=== PATIENT | female | born 2000 | race Caucasian/White ===

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

== ENCOUNTER 2019-01-26 17:32 | Emergency (ER) | payer MEDICAID, SELFPAY ==
[2019-01-26 17:43] VITALS: BP 129/79; PULSE 87; RESP 16; TEMP 36.7; O2SAT 98
[2019-01-26] MEDS: Acetaminophen 325 MG TAB 650 MG PO (19:27)
[2019-01-26] MEDS: Ibuprofen 600 MG TAB PO (19:27)
[2019-01-26] MEDS: Lidocaine 5% Patch 1 PATCH TP (19:28)
--- NOTE | 2019-01-26 19:42 | ED.GENADUL_ITS ---
Discharge Plan Disposition Patient Disposition: HOME Discharge Details Chief Complaint: Nk/Back Pain Clinical Impression: Acute lumbar back pain Primary Care Provider: Dmitry Zurita ED Provider: [facility] Home Meds and New Rx's Prescriptions: New lidocaine 5 % adhesive patch,medicated 1 patch TP DAILY Qty: 15 RF: 0 ibuprofen 200 mg capsule 600 mg PO TID PRN PRN (Reason: pain) Qty: 30 RF: 0 acetaminophen [Tylenol] 325 mg capsule 650 mg PO Q6H PRN (Reason: pain) Qty: 30 RF: 0 No Action Control Pill PO DAILY RF: 0 Discharge Instructions Instructions: Low Back Strain (ED) Additional Instructions: Please take ibuprofen 600 mg every 6-8 hours for the next few days. Please take Tylenol 650 mg every 6-8 hours for the next few days. Use lidocaine patch as prescribed. Please contact your primary care physician to arrange follow-up. Return to the ER for any worsening or new concerning symptoms. Referrals: Dmitry Zurita [Primary Care Provider] - Medical Decision Making 18-year-old female here with atraumatic low back pain for the past 3 to 4 days. Exam significant for tenderness mid lumbar paraspinal. No midline tenderness. Neurologically intact with no new neurologic symptoms. No fever. Suspect muscle strain versus spasm versus less likely disc herniation. Plan to treat with ibuprofen, Tylenol and lidocaine patch. Usual customary discharge instructions were provided. I advised close outpatient follow-up should symptoms persist. She understands to return to the ER immediately for any worsening or new concerning symptoms. Patient was placed on the care management follow-up list to assist in arranging timely follow-up with her new PCP. HPI General Mode of arrival: ambulatory . Date/Time Provider Initiated Documentation: 01/26/19 19:01 . Limitations to Documentation: no limitations . Information obtained by: patient . HPI Narrative: 18-year-old female presents with chief complaint of low back pain. Patient notes that for the past 3 to 4 days she has had lower back pain that has persisted. Patient notes she woke up with it one morning. She did not have any trauma. Pain is moderate. Worse with certain positions including twisting her low back. She has no associated numbness, weakness, bowel or bladder dysfunction, fever, rash, or abdominal pain. Patient does note she had a illness recently with sore throat, cough and vomiting - now resolved this past week. Related Data Home Medications Medication Instructions Recorded Confirmed Control Pill PO DAILY 01/26/19 acetaminophen [Tylenol] 650 mg PO Q6H PRN #30 cap 01/26/19 ibuprofen 600 mg PO TID PRN PRN #30 cap 01/26/19 lidocaine 1 patch TP DAILY #15 each 01/26/19 Previous Rx's Medication Instructions Recorded acetaminophen [Tylenol] 650 mg PO Q6H PRN #30 cap 01/26/19 ibuprofen 600 mg PO TID PRN PRN #30 cap 01/26/19 lidocaine 1 patch TP DAILY #15 each 01/26/19 Allergies Allergy/AdvReac Type Severity Reaction Status Date / Time No Known Allergies Allergy Unverified 01/26/19 17:47 General Stated Complaint: Orthopedic RAJWINDER: 4 Review of Systems Review of Systems All systems reviewed & are unremarkable except as noted in HPI and below Exam Const General: cooperative and no acute distress HENMT Head: normocephalic and atraumatic Mouth: moist mucous membranes Eyes Conjunctivae: normal conjunctivae Sclera: normal sclerae Neck Neck: full ROM and nontender Resp Auscultation: clear to auscultation bilaterally, no rales, no rhonchi and no wheezes Cardio Jugular venous pressure: no JVD Rate: regular rate and not tachycardic Rhythm: regular rhythm GI Palpation: soft, not firm, no guarding, no masses, not rigid and nontender Back/Spine/Pelvis Back: No erythema, No warmth and No ecchymosis Thoracic/Lumbar Spine: paraspinal tenderness (left lumbar L3) and No thoracic spinal tenderness Skin General skin exam: no rashes or lesions noted Neuro General: alert, awake, oriented x3, tone normal and other (no saddle anesth - gloved exam though clothing with mother present) Cognition: normal cognition Motor: muscle tone normal throughout and strength 5/5 throughout Sensory Exam: no sensory deficits noted DTR's: Rt Patellar: 3+ and Lt Patellar: 3+ Extrem General: no edema Course Vital Signs Temperature 36.7 C 01/26/19 17:43 Pulse 87 01/26/19 17:43 Respiratory Rate 16 01/26/19 17:43 Blood Pressure 129/79 01/26/19 17:43 Pulse Oximetry 98 01/26/19 17:43 Temperature 36.7 C 01/26/19 17:43 Temperature Source Skin 04/21/19 17:43 Pulse 87 01/26/19 17:43 Respiratory Rate 16 01/26/19 17:43 Respiratory Effort Non-Labored 01/26/19 17:43 Blood Pressure 129/79 01/26/19 17:43 Blood Pressure Position Sitting 01/26/19 17:43 Pulse Oximetry 98 01/26/19 17:43 Oxygen Delivery Method Room Air 01/26/19 17:43 Oxygen Flow Rate 0 01/26/19 17:43 Pain Level 8 01/26/19 19:27
[2019-01-26 19:50] VITALS: BP 121/69; PULSE 80; RESP 15; TEMP 36.7; O2SAT 98
== END 2019-01-26 19:57 | disposition home or self-care (01) ==
PROVIDERS: Emergency Provider Student in an Organized Health Care Education/Training Program; PCP Family Medicine
DX: M54.5 Low back pain (principal)
CPT/HCPCS: 99283

== ENCOUNTER 2019-09-26 21:08 | Emergency (ER) | payer OTHER, SELFPAY ==
[2019-09-26 21:12] VITALS: BP 131/82; PULSE 84; RESP 17; TEMP 36.9; O2SAT 99
--- NOTE | 2019-09-26 21:15 | W.ED.GENAD ---
Discharge Plan Disposition Patient Disposition: HOME Condition: Good Discharge Details Chief Complaint: Burn Clinical Impression: Burn of finger Primary Care Provider: Dmitry Zurita ED Provider: Marco Deal Home Meds and New Rx's Prescriptions: No Action Control Pill PO DAILY RF: 0 lidocaine 5 % adhesive patch,medicated 1 patch TP DAILY Qty: 15 RF: 0 ibuprofen 200 mg capsule 600 mg PO TID PRN PRN (Reason: pain) Qty: 30 RF: 0 acetaminophen [Tylenol] 325 mg capsule 650 mg PO Q6H PRN (Reason: pain) Qty: 30 RF: 0 Discharge Instructions Instructions: Second Degree Burn (ED) Additional Instructions: At this time you have a mild burn on the tips of your fingers. These will likely blister in the next 12 hours. Please do not pop these blisters. Please take Tylenol and Motrin as needed for pain. Please apply the Silvadene cream 2-3 times per day. If you notice any redness, discharge, or develop significant swelling fever or chills please return immediately. If you notice any worsening of your symptoms, or any new symptoms such as vomiting, diarrhea, fever, chills, shortness of breath, chest pain, numbness, weakness, or fainting , please return immediately to the emergency department for reevaluation. Please follow up with your primary care provider as soon as possible for reassessment and reevaluation. As always, it was a pleasure participating in your medical care today. Stand Alone Forms: Work Release Referrals: Dmitry Zurita [Primary Care Provider] - Medical Decision Making This is a 18-year-old female whose immunizations are up-to-date per patient who presents today for evaluation of burn on her left nondominant hand. 3 hours ago the patient was at work when she touched a hot burner which led to a very thin linear burn across the second third fourth and fifth digits of her hand at the mid phalanx on all fingers included. Exam demonstrates no circumferential burn, no difficulty moving the fingers for flexion or extension, no vesicles or bulla. No evidence of significant skin breakdown. Burn is notably small and mild. Tetanus is up-to-date per patient, we will give Silvadene for home use, recommend continued NSAIDs and close monitoring. Discussed red flags which to return. I have extensively reviewed the treatment plan and discharge instructions with the patient. I have addressed all patient concerns at this time. The patient was made aware of what symptoms to monitor for that would warrant a return to the emergency department. Discussed the plan with the patient, they demonstrate verbal understanding and agreement with our assessment and plan at this time. HPI General Date/Time Provider Initiated Documentation: 09/26/19 21:09. HPI Narrative: This is a 18-year-old female whose immunizations are up-to-date including tetanus per patient, who presents today for evaluation of burn on her left nondominant hand. 3 hours prior to arrival she was working at her kitchen at work when she touched a strip on the burner, which caused a very small linear burn across her second third fourth and fifth finger at the mid phalanges. Patient applied some triple antibiotic ointment and is been keeping it cold using ice since then. Aside for the mild pain at that site she denies any other complaints. No other modifying factors. Related Data Home Medications Medication Instructions Recorded Confirmed Control Pill PO DAILY 01/26/19 acetaminophen [Tylenol] 650 mg PO Q6H PRN #30 cap 01/26/19 ibuprofen 600 mg PO TID PRN PRN #30 cap 01/26/19 lidocaine 1 patch TP DAILY #15 each 01/26/19 Previous Rx's Medication Instructions Recorded acetaminophen [Tylenol] 650 mg PO Q6H PRN #30 cap 01/26/19 ibuprofen 600 mg PO TID PRN PRN #30 cap 01/26/19 lidocaine 1 patch TP DAILY #15 each 01/26/19 Allergies Allergy/AdvReac Type Severity Reaction Status Date / Time No Known Allergies Allergy Unverified 01/26/19 17:47 General Stated Complaint: Burn RAJWINDER: 4 Review of Systems All systems reviewed & are unremarkable except as noted in HPI and below PFSH Social History Smoking/Tobacco Use Status: Never Alcohol Intake: never Drug use: Never Substance use type: does not use Do you feel safe at home: Yes Do you feel safe in your relationship?: Yes Exam Narrative Exam Narrative: 1.Const: Well-nourished, Well-developed, appearing stated age 2.Eyes: PERRL, no conjunctival injection, and symmetrical lids. 3.ENT: Atraumatic external nose and ears. Moist MM. Neck: Symmetric, trachea midline, No thyromegaly. 4.CVS: +S1/S2, No murmurs or gallops. Peripheral pulses 2+ and equal in all extremities. Brisk capillary refill in all extremities. 5.RESP: Unlabored respiratory effort. Clear to auscultation bilaterally. No wheezes rales or rhonchi 6.GI: Soft, Nontender/Nondistended, No hepatosplenomegaly. No guarding or rebound. 7.MSK: Normocephalic/Atraumatic, Extremities w/o deformity or ttp No cyanosis or clubbing, Normal movement of all extremities 8.Skin: Warm, Dry. Patient's left hand demonstrates a very small linear second-degree burn that is roughly 3 to 4 mm in width, that extends in a long thin line across the mid phalanx for the second third fourth and fifth digits on the left hands. There is no other significant swelling, no vesicles or bulla. No evidence of blister. No circumferential swelling or burn. No inability to flex or extend at any of the interphalangeal joints. No other abnormalities. No bleeding no discharge. 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 Sensation grossly intact, no focal neurologic deficits. 10.Psych: (AAO) x3. Appropriate mood and affect Course Vital Signs Vital signs: Vital Signs Temperature 36.9 C 09/26/19 21:12 Pulse 84 09/26/19 21:12 Respiratory Rate 17 09/26/19 21:12 Blood Pressure 131/82 09/26/19 21:12 Pulse Oximetry 99 09/26/19 21:12 Temperature 36.9 C 09/26/19 21:12 Temperature Source Skin 09/26/19 21:12 Pulse 84 09/26/19 21:12 Respiratory Rate 17 09/26/19 21:12 Respiratory Effort Non-Labored 09/26/19 21:13 Blood Pressure 131/82 09/26/19 21:12 Blood Pressure Position Sitting 09/26/19 21:12 Pulse Oximetry 99 09/26/19 21:12 Oxygen Delivery Method Room Air 09/26/19 21:12 Oxygen Flow Rate 0 09/26/19 21:12 Pain Level 7 09/26/19 21:12
== END 2019-09-26 21:20 | disposition home or self-care (01) ==
LOC: ER 21:28
PROVIDERS: Emergency Provider Student in an Organized Health Care Education/Training Program; PCP Nurse Practitioner Family
DX: T23.232A Burn of second degree of multiple left fingers (nail), not including thumb, initial encounter (principal); X15.0XXA Contact with hot stove (kitchen), initial encounter; Y99.0 Civilian activity done for income or pay
CPT/HCPCS: 16020

== ENCOUNTER 2019-10-26 16:37 | Emergency (ER) | payer MEDICAID, SELFPAY ==
[2019-10-26 16:43] VITALS: BP 117/93; PULSE 87; TEMP 36.5; O2SAT 99
--- NOTE | 2019-10-26 16:52 | W.ED.GENAD ---
Discharge Plan Disposition Patient Disposition: HOME Condition: Improving Discharge Details Chief Complaint: Recheck Clinical Impression: Upper respiratory infection, viral Primary Care Provider: Eleno Aleman ED Provider: [place] Home Meds and New Rx's Prescriptions: No Action ibuprofen 200 mg capsule 600 mg PO TID PRN PRN (Reason: pain) Qty: 30 RF: 0 acetaminophen [Tylenol] 325 mg capsule 650 mg PO Q6H PRN (Reason: pain) Qty: 30 RF: 0 Depo-Estradiol 5 mg/mL Oil 5 mg IM Q2-3M RF: 0 Discharge Instructions Instructions: Upper Respiratory Infection (ED) Additional Instructions: Return for any acute concerns. Stand Alone Forms: Work Release Medical Decision Making 18-year-old female presents from home with complaint of needing work clearance after having upper respiratory illness for 3 days this week. She is well-appearing, without complaint, vital signs are normal and her exam is reassuring. She is stable and appropriate for discharge. HPI General Mode of arrival: ambulatory. Date/Time Provider Initiated Documentation: 10/26/19 16:47. Limitations to Documentation: no limitations. Information obtained by: patient. History of Present Illness 18 year old F presents to the emergency department with the chief complaint of Cough that is now improved, need clearance to return to work, described as mild, and is localized to the chest. Patient reports no radiation. and it has been constant. No relieving factors improve symptom(s), No exacerbating factors reported . Patient did receive the following treatments prior to arrival, none Related Data Home Medications Medication Instructions Recorded Confirmed acetaminophen [Tylenol] 650 mg PO Q6H PRN #30 cap 01/26/19 10/26/19 ibuprofen 600 mg PO TID PRN PRN #30 cap 01/26/19 10/26/19 estradiol cypionate 5 mg IM Q2-3M 10/26/19 10/26/19 [Depo-Estradiol] Previous Rx's Medication Instructions Recorded acetaminophen [Tylenol] 650 mg PO Q6H PRN #30 cap 01/26/19 ibuprofen 600 mg PO TID PRN PRN #30 cap 01/26/19 Allergies Allergy/AdvReac Type Severity Reaction Status Date / Time No Known Allergies Allergy Unverified 10/26/19 16:47 General Stated Complaint: Recheck RAJWINDER: 5 Review of Systems Narrative: Cough that is improved. Taking liquids solids no difficulty I feel good. 6 systems reviewed and otherwise negative. [facility] Social History Smoking/Tobacco Use Status: Never Alcohol Intake: never Drug use: Never Substance use type: does not use Do you feel safe at home: Yes Do you feel safe in your relationship?: Yes Exam Narrative Exam Narrative: GEN: awake, alert, oriented 3. Pleasant, well groomed, interactive. HEAD: Normocephalic, atraumatic ENT: Mucous membranes moist, oropharynx unremarkable, External ear exam unremarkable EYES: PERRL, EOMI NECK: Full ROM, no JORGE, no menigismus CHEST/RESP: Nontender, clear to auscultation bilateral, no wheeze/rhonchi/rales CARDIOVASCULAR: RRR, no murmur, rub get. 2+ Rad pulse bilateral ABDOMEN: Soft, nontender, no mass. +Bowel sounds EXT: Full ROM, no edema, no rash Neuro: Grossly normal neurologic exam, conversant, interactive. Psych: Speech fluent, thoughts congruent, affect normal Course Vital Signs Vital signs: Vital Signs Temperature 36.5 C 10/26/19 16:43 Pulse 87 10/26/19 16:43 Blood Pressure 117/93 H 10/26/19 16:43 Pulse Oximetry 99 10/26/19 16:43 Temperature 36.5 C 10/26/19 16:43 Temperature Source Skin 10/26/19 16:43 Pulse 87 10/26/19 16:43 Blood Pressure 117/93 H 10/26/19 16:43 Blood Pressure Position Sitting 10/26/19 16:43 Pulse Oximetry 99 10/26/19 16:43 Oxygen Delivery Method Room Air 10/26/19 16:43 Oxygen Flow Rate 0 10/26/19 16:43 Pain Level 0 10/26/19 16:43
== END 2019-10-26 17:17 | disposition home or self-care (01) ==
PROVIDERS: Emergency Provider Emergency Medicine; PCP Nurse Practitioner Family
DX: J06.9 Acute upper respiratory infection, unspecified (principal); R05 Cough; Z02.79 Encounter for issue of other medical certificate
CPT/HCPCS: 99282

== ENCOUNTER 2019-12-14 18:57 | Emergency (ER) | payer MEDICAID, SELFPAY ==
[2019-12-14 19:51] VITALS: BP 134/87; PULSE 88; RESP 16; TEMP 36.5; O2SAT 100
--- NOTE | 2019-12-14 20:44 | ED.GENADUL_ITS ---
Discharge Plan Disposition Patient Disposition: HOME Condition: Stable Discharge Details Chief Complaint: Nk/Back Pain Clinical Impression: Back pain Primary Care Provider: Eleno Aleman ED Provider: Darci Sam Home Meds and New Rx's Prescriptions: Continued ibuprofen 200 mg capsule 600 mg PO TID PRN PRN (Reason: pain) Qty: 30 RF: 0 acetaminophen [Tylenol] 325 mg capsule 650 mg PO Q6H PRN (Reason: pain) Qty: 30 RF: 0 Depo-Estradiol 5 mg/mL Oil 5 mg IM Q2-3M RF: 0 Discharge Instructions Instructions: Back Pain (ED) Additional Instructions: [id number] Tylenol and/or Motrin as directed for discomfort. Cool and/or warm compresses every 2 hours for 20 minutes. Gentle stretching as tolerated. Please watch for new or worsening symptoms and return to the ER for any concerns. I do recommend reaching out to your primary care provider tomorrow for prompt outpatient reevaluation, outpatient referral to physical therapy may be indicated Stand Alone Forms: Work Release Medical Decision Making 19-year-old female reports 4-5-day history of lower back pain worse with movement. She denies any trauma, fever, abdominal pain, radiation of pain, bowel or urinary symptoms. Took a single dose of ibuprofen. Here now requesting a note to return back to work. She appears well, nontoxic. Neurologically intact. No indication for imaging. Discussed conservative therapy with gentle stretching, [id number] Motrin on a consistent basis as directed, warm and or cool compresses, and outpatient follow-up with her primary care provider. Outpatient physical therapy may be indicated. Patient comfortable this plan and has no additional questions or concerns Medical Records Medical records reviewed: Yes I reviewed the patient's medical records. HPI General Mode of arrival: ambulatory . Date/Time Provider Initiated Documentation: 12/14/19 19:41 . Limitations to Documentation: no limitations . Information obtained by: patient . HPI Narrative: This is a 19-year-old female reporting lower back pain, mild currently, worse with movement, moderate, over the past 4 or 5 days. Denies any obvious injury or trauma but does report lifting at work and repetitive motions. She reports a history of sciatica several months ago but this does not feel the same, does not radiate down her legs. She took a single dose of ibuprofen a few days ago but no other medications. She denies abdominal pain, fever, numbness, tingling, weakness, incontinence, dysuria, hematuria. Patient reports that she called out of work the previous 2 days and went home early today, is requesting a work note to return back to work. She tells me she has a history of some chronic knee issues, was set up with physical therapy in the past but did not go. Related Data Home Medications Medication Instructions Recorded Confirmed acetaminophen [Tylenol] 650 mg PO Q6H PRN #30 cap 01/26/19 12/14/19 ibuprofen 600 mg PO TID PRN PRN #30 cap 01/26/19 12/14/19 Depo-Estradiol 5 mg IM Q2-3M 10/26/19 12/14/19 Previous Rx's Medication Instructions Recorded acetaminophen [Tylenol] 650 mg PO Q6H PRN #30 cap 01/26/19 ibuprofen 600 mg PO TID PRN PRN #30 cap 01/26/19 Allergies Allergy/AdvReac Type Severity Reaction Status Date / Time No Known Allergies Allergy Unverified 12/14/19 19:54 General Stated Complaint: Nk/Back Pain RAJWINDER: 4 Review of Systems Constitutional Constitutional: Denies fever(s) and Denies weakness Cardiovascular Cardiovascular: Denies chest pain and Denies dyspnea Respiratory Respiratory: Denies cough and Denies dyspnea Gastrointestinal Gastrointestinal: Denies abdominal pain, Denies diarrhea, Denies nausea and Denies vomiting Genitourinary Genitourinary: Denies abnormal vaginal bleeding, Denies urinary frequency and Denies dysuria Musculoskeletal Musculoskeletal: Reports back pain, Denies myalgias, Denies numbness, Denies stiffness and Denies tingling Integumentary/Breasts Skin/Breast: Denies rash Neurologic Neurologic: Denies numbness, Denies tingling and Denies weakness [facility] Social History Smoking/Tobacco Use Status: Never Alcohol Intake: never Drug use: Never Substance use type: does not use Do you feel safe at home: Yes Do you feel safe in your relationship?: Yes Exam Const General: cooperative, healthy appearing, comfortable and no acute distress Orientation: alert, awake and oriented x3 HENMT Head: normal to inspection, normocephalic and atraumatic Mouth: moist mucous membranes Eyes Conjunctivae: conjunctivae normal Neck Neck: normal visual inspection, full ROM, trachea midline and supple Resp Effort & Inspection: normal respiratory effort and able to speak in complete sentences Cardio Rate: regular rate Rhythm: regular rhythm GI Inspection: normal to inspection Palpation: soft, not firm, no guarding and not rigid Auscultation: normal bowel sounds Back/Spine/Pelvis Back: No no CVA tenderness and No back tenderness Thoracic/Lumbar Spine: thoracic and lumbar spine normal to inspection, thoraco- lumbar ROM normal, No pain with thoraco-lumbar ROM, No paraspinal tenderness and No thoracic spinal tenderness Skin General skin exam: no rashes or lesions noted Neuro General: alert, awake, moves all extremities and no focal motor deficits Gait: normal gait Motor: muscle tone normal throughout and strength 5/5 throughout Sensory Exam: no sensory deficits noted Extrem General: normal to inspection, full ROM and normal capillary refill Psych Appearance: grossly normal Mental Status: mental status grossly normal Course Vital Signs Vital signs: Vital Signs Temperature 36.5 C 12/14/19 19:51 Pulse 88 12/14/19 19:51 Respiratory Rate 16 12/14/19 19:51 Blood Pressure 134/87 12/14/19 19:51 Pulse Oximetry 100 12/14/19 19:51 Temperature 36.5 C 12/14/19 19:51 Temperature Source Temporal Artery Scan 12/14/19 19:51 Pulse 88 12/14/19 19:51 Respiratory Rate 16 12/14/19 19:51 Respiratory Effort 12/14/19 19:55 Blood Pressure 134/87 12/14/19 19:51 Blood Pressure Position Sitting 12/14/19 19:51 Pulse Oximetry 100 12/14/19 19:51 Oxygen Delivery Method Room Air 12/14/19 19:51 Oxygen Flow Rate 0 12/14/19 19:51 Pain Level 4 12/14/19 19:51
== END 2019-12-14 23:05 | disposition home or self-care (01) ==
PROVIDERS: Emergency Provider Physician Assistant; PCP Nurse Practitioner Family
DX: M54.5 Low back pain (principal)
CPT/HCPCS: 99282

== ENCOUNTER 2020-03-13 20:30 | Emergency (ER) | payer MEDICAID, SELFPAY ==
--- NOTE | 2020-03-13 20:30 | DI.RAD_ITS ---
EXAM: XR HAND RT COMPLETE CLINICAL HISTORY: pain, injury.. TECHNIQUE: 2D digital imaging was performed. COMPARISON: No exams were available for comparison FINDINGS: BONES: No acute fracture is present. No bony destructive lesion is seen. JOINTS: No dislocation present. SOFT TISSUE: Mild soft tissue swelling. IMPRESSION: No acute fracture or dislocation. DATA REPOSITORY: RADIATION DOSE DELIVERED:
[2020-03-13 20:37] VITALS: BP 135/87; PULSE 83; RESP 16; TEMP 36.9; O2SAT 97
--- NOTE | 2020-03-13 20:42 | ED.GENADUL_ITS ---
Discharge Plan Disposition Patient Disposition: HOME Condition: Stable Discharge Details Chief Complaint: Orthopedic Clinical Impression: Contusion of hand Primary Care Provider: Eleno Aleman ED Provider: Adriane Garcia Home Meds and New Rx's Prescriptions: Continued ibuprofen 200 mg capsule 600 mg PO TID PRN PRN (Reason: pain) Qty: 30 RF: 0 acetaminophen [Tylenol] 325 mg capsule 650 mg PO Q6H PRN (Reason: pain) Qty: 30 RF: 0 Depo-Estradiol 5 mg/mL Oil 5 mg IM Q2-3M RF: 0 Discharge Instructions Instructions: Contusion in Adults (ED) Additional Instructions: Rest. Activities as tolerated. Finger splint for comfort for 1 week if needed Elevate injury to prevent swelling. Ice to the area of discomfort for 15 min. 3-5 times daily. Motrin every 8 hours with food or Tylenol every 6 hours for soreness if needed over the counter for comfort. Followup with primary care doctor as discussed if not improving in one week. Return for any worsening or concerns sooner if needed. Medical Decision Making <CARLOTA Honeycutt - Last Filed: 03/13/20 21:42> 19-year-old patient presents after hand injury. Unsure of specifics. Presents with ecchymosis and swelling to the MCP joint of the fourth digit with focal tenderness at the site. We will plan to obtain x-ray. No open wounds. Full range of motion of hand. No concern of tendon injury. Patient declines testing prior to x-ray. X-ray unremarkable for fracture. Discussed conservative treatments. The patient was stable and requested discharge. Prior to discharge, my usual and customary return precautions were reviewed with the patient - this included follow-up instructions and reasons to return to the Emergency Department if conditions worsens, does not improve as expected, or other new concerns arise. <Parveen Mendoza MD - Last Filed: 03/13/20 21:41> I had a [id number] encounter with the patient. I evaluated the patient. I discussed case with TRUCK AND TRANSPORT MECHANIC/PA and I reviewed TR[employer] AND TRANSPORT MECHANIC/PA note and agree with note as documented HPI <CARLOTA Honeycutt - Last Filed: 03/13/20 21:42> General Date/Time Provider Initiated Documentation: 03/13/20 20:41 . HPI Narrative: This is a 19-year-old patient presenting the emergency room for complaints of right hand injury. Patient is unsure how she injured her hand but she believes she struck her right hand on something. Patient denies a punching injury. Patient reports swelling and pain noted to the fourth MCP joint. Patient denies numbness, tingling or weakness. Pain with range of motion. Patient has no open wounds. Denies any significant wrist or proximal injury. No other complaints or concerns at this time. Denies paresthesia. Screens negative for Covid. No chest pain with difficulty breathing shortness of breath or wheezing. Related Data Home Medications Medication Instructions Recorded Confirmed acetaminophen [Tylenol] 650 mg PO Q6H PRN #30 cap 01/26/19 03/13/20 ibuprofen 600 mg PO TID PRN PRN #30 cap 01/26/19 03/13/20 Depo-Estradiol 5 mg IM Q2-3M 10/26/19 03/13/20 Previous Rx's Medication Instructions Recorded acetaminophen [Tylenol] 650 mg PO Q6H PRN #30 cap 01/26/19 ibuprofen 600 mg PO TID PRN PRN #30 cap 01/26/19 Allergies Allergy/AdvReac Type Severity Reaction Status Date / Time No Known Allergies Allergy Unverified 03/13/20 20:39 General Stated Complaint: Orthopedic RAJWINDER: 4 Review of Systems <CARLOTA Honeycutt - Last Filed: 03/13/20 21:42> All systems reviewed & are unremarkable except as noted in HPI and below Constitutional Constitutional: Denies chills and Denies fever(s) Cardiovascular Cardiovascular: Denies dyspnea Respiratory Respiratory: Denies cough and Denies dyspnea PFSH <CARLOTA Honeycutt - Last Filed: 03/13/20 21:42> Social History Smoking/Tobacco Use Status: Never Alcohol Intake: never Drug use: Never Substance use type: does not use Do you feel safe at home: Yes Do you feel safe in your relationship?: Yes Exam <CARLOTA Honeycutt - Last Filed: 03/13/20 21:42> Narrative Exam Narrative: CONST: Healthy appearing patient, in no acute distress. Well hydrated. Alert and oriented. HENMT: Head nomocephalic, normal to inspection. Atraumatic. Hearing grossly normal. EYES: General normal appearance. Alignment normal. Eyelids normal. Conjunctiva normal. NECK: Normal visual inspection. FROM. Trachea midline. No Midline tenderness. CHEST: Normal insepection of the chest. RESP: Normal respiratory effort. Speaking full sentences. No cough. No audible wheezing. No retractions. CARDIO: No JVD. MUSCULOSKELETAL: Normal Gait. FROM of all extremities. No elbow pain, forearm pain or wrist pain with palpation. Full range of motion of wrist. Right hand: With ecchymosis and mild swelling noted to the MCP joints of the third fourth and fifth digit. Focal tenderness noted to the fourth digit MCP. Flexion extension intact. No weakness. Sensation intact distally. No open wounds. SKIN: Normal. Dry. No rashes. NEURO: Alert and awake. Speech clear. PSYCH: Normal affect. Cooperative. Course <CARLOTA Honeycutt - Last Filed: 03/13/20 21:42> Vital Signs Vital signs: Vital Signs Temperature 36.9 C 03/13/20 20:37 Pulse 83 03/13/20 20:37 Respiratory Rate 16 03/13/20 20:37 Blood Pressure 135/87 03/13/20 20:37 Pulse Oximetry 97 03/13/20 20:37 Temperature 36.9 C 03/13/20 20:37 Temperature Source Skin 03/13/20 20:37 Pulse 83 03/13/20 20:37 Respiratory Rate 16 03/13/20 20:37 Blood Pressure 135/87 03/13/20 20:37 Blood Pressure Position Sitting 03/13/20 20:37 Pulse Oximetry 97 03/13/20 20:37 Oxygen Delivery Method Room Air 03/13/20 20:37 Oxygen Flow Rate 0 03/13/20 20:37 Pain Level 3 03/13/20 20:37
--- NOTE | 2020-03-13 21:30 | DI.VRAD_ITS ---
PROCEDURE INFORMATION: Exam: XR Right Hand Exam date and time: 03/13/2020 21:21 Age: 19 years old Clinical indication: Other: Pain, injury TECHNIQUE: Imaging protocol: XR Right hand. Views: 3 or more views. COMPARISON: No relevant prior studies available. FINDINGS: Bones/joints: A benign incidental bone island in the scaphoid. No acute fracture or subluxation. Soft tissues: Mild swelling suggested in the dorsum of the wrist. IMPRESSION: No acute bony pathology. Dictated and Authenticated by: Shyla Oliva MD. Ordering:MARISA Forrest MD
== END 2020-03-13 21:48 | disposition home or self-care (01) ==
PROVIDERS: Emergency Provider Physician Assistant; PCP Nurse Practitioner Family
DX: S60.221A Contusion of right hand, initial encounter (principal); X58.XXXA Exposure to other specified factors, initial encounter; Y99.0 Civilian activity done for income or pay
CPT/HCPCS: 29130; 99283; 73130

== ENCOUNTER 2021-10-03 11:41 | Emergency (ER) | payer MEDICAID, SELFPAY ==
[2021-10-03] VITALS (9 sets, daily range): BP systolic 128; BP diastolic 82; PULSE 74–97; RESP 14–25; TEMP 36.4; O2SAT 99–100
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
[2021-10-03] MEDS: Acetaminophen 500 MG TAB 1000 MG PO (12:29)
== END 2021-10-03 13:13 | disposition home or self-care (01) ==
PROVIDERS: Emergency Provider Physician Assistant; PCP Nurse Practitioner Family
DX: S06.0X0A Concussion without loss of consciousness, initial encounter (principal); S00.83XA Contusion of other part of head, initial encounter; R68.84 Jaw pain; V43.62XA Car passenger injured in collision with other type car in traffic accident, initial encounter
CPT/HCPCS: 90471; 99284; 70450; 70486

== ENCOUNTER 2023-04-30 12:25 | Emergency (ER) | payer SELFPAY ==
[2023-04-30 12:43] VITALS: BP 107/85; PULSE 109; RESP 18; TEMP 37; O2SAT 97
--- NOTE | 2023-04-30 14:09 | ED.GENADUL_ITS ---
Discharge Plan Disposition Patient Disposition: Home Condition: Stable Discharge Details Clinical Impression: COVID-19 Primary Care Provider: Unknown,Unknown ED Provider: [facility] Med[facility] and New Rx's Prescriptions: New ondansetron 4 mg film 4 mg PO Q8H PRN (Reason: nausea and vomiting) Qty: 10 0RF Continued ibuprofen 200 mg capsule 600 mg PO TID PRN PRN (Reason: pain) Qty: 30 0RF acetaminophen [Tylenol] 325 mg capsule 650 mg PO Q6H PRN (Reason: pain) Qty: 30 0RF Discharge Instructions Instructions: COVID-19 (Coronavirus Disease 2019) (ED) Additional Instructions: Please drink plenty of fluid to stay hydrated. Drink small amounts frequency in order to avoid nausea. Please contact your primary care physician to arrange follow-up. Maintain home isolation and avoid public exposure for the next 5 days. After 5 days if no symptoms, you can go back into public. If symptoms persist, maintain home isolation until symptoms completely resolved. Return to the ER immediately for any worsening or new concerning symptoms. Discharge Data Discharge Date/Time-TO BE ENTERED AT DEPARTURE: 04/30/23 14:12 Medical Decision Making 22-year-old female with flulike illness, tested positive for COVID yesterday, other family members sick with similar and testing positive for COVID. Suspect COVID illness. Patient saturating well in no respiratory distress. Ondansetron given for nausea. Urine negative. I recommended increased oral hydration and supportive care. Usual customary discharge instructions were reviewed. Lab Data Lab results reviewed: Yes I reviewed the patient's lab results. HPI General Mode of arrival: ambulatory . Date/Time Provider Initiated Documentation: 04/30/23 13:48 . Limitations to Documentation: no limitations . HPI Narrative: 22-year-old female here with flulike illness with coughing, sore throat, fever fatigue, headache, low back pain, leg pain described as aches, and nausea vomiting. Patient tested positive for COVID yesterday. Other family member sick with respiratory/flulike illness and testing positive for COVID. Patient has no chest pain or shortness of breath. Related Data Home Medications Medication Instructions Recorded Confirmed acetaminophen 325 mg capsule 650 mg PO Q6H PRN pain #30 caps 01/26/19 04/30/23 (Tylenol) ibuprofen 200 mg capsule 600 mg PO TID PRN PRN pain #30 caps 01/26/19 04/30/23 ondansetron 4 mg oral soluble film 4 mg PO Q8H PRN nausea and 04/30/23 vomiting #10 ea Previous Rx's Medication Instructions Recorded acetaminophen 325 mg capsule 650 mg PO Q6H PRN pain #30 caps 01/26/19 (Tylenol) ibuprofen 200 mg capsule 600 mg PO TID PRN PRN pain #30 caps 01/26/19 ondansetron 4 mg oral soluble film 4 mg PO Q8H PRN nausea and 04/30/23 vomiting #10 ea Allergies Allergy/AdvReac Type Severity Reaction Status Date / Time No Known Allergies Allergy Unverified 04/30/23 12:46 General Stated Complaint: [facility] RAJWINDER: 4 Review of Systems All systems reviewed & are unremarkable except as noted in HPI and below PFSH All Active Problems COVID-19 (Acute) Social History Smoking/Tobacco Use Status: Current every day Tobacco Type: cigarettes and e- cigarettes Smoking risk assessment performed?: Yes Alcohol Intake: never Drug use: Occasionally Substance use type: marijuana Do you feel safe at home: Yes Do you feel safe in your relationship?: Yes Exam Const General: cooperative and no acute distress Orientation: alert and awake HENMT Mouth: moist mucous membranes Throat: posterior oropharynx normal Eyes Conjunctivae: normal conjunctivae Sclera: normal sclerae Neck Neck: trachea midline and supple Resp Effort & Inspection: normal respiratory effort, able to speak in complete sentences, not labored and no respiratory distress Auscultation: no rales, rhonchi and no wheezes Cardio Rate: regular rate and not tachycardic Rhythm: regular rhythm GI Palpation: soft, not firm, no guarding, no masses, not rigid and nontender Skin General skin exam: no rashes or lesions noted Neuro General: patient alert, patient awake and tone normal Extrem General: no edema Psych Appearance: grossly normal Mental Status: mental status grossly normal Speech and Movement: speech and movement normal Course Vital Signs Vital signs: Vital Signs Temperature 37.0 C 04/30/23 12:43 Pulse 109 H 04/30/23 12:43 Respiratory Rate 18 04/30/23 12:43 Blood Pressure 107/85 07/24/23 12:43 Pulse Oximetry 97 04/30/23 12:43 Temperature 37.0 C 04/30/23 12:43 Temperature Source Skin 04/30/23 12:43 Pulse 109 H 04/30/23 12:43 Respiratory Rate 18 04/30/23 12:43 Respiratory Effort Normal 04/30/23 12:47 Blood Pressure 107/85 04/30/23 12:43 Blood Pressure Position Sitting 04/30/23 12:43 Pulse Oximetry 97 04/30/23 12:43 Oxygen Delivery Method Room Air 04/30/23 12:43 Oxygen Flow Rate 0 04/30/23 12:43 Pain Level 2 04/30/23 12:43
--- NOTE | 2023-04-30 14:14 | NUR.NOTE ---
Nursing Note: pt left room 10 and walkedn out of ED after MD assessed pts.
[2023-04-30 14:33] VITALS: RESP 20
== END 2023-04-30 14:12 | disposition home or self-care (01) ==
PROVIDERS: Emergency Provider Student in an Organized Health Care Education/Training Program
DX: U07.1 COVID-19 (principal)
CPT/HCPCS: 99283; 99284